=== PATIENT | female | born 1960 | race Caucasian/White ===

== ENCOUNTER 2016-12-05 11:00 | Day surgery (SDC) | payer OTHER ==
--- NOTE | 2016-12-01 03:52 | HP ---
PREOPERATIVE HISTORY AND PHYSICAL: DATE OF OFFICE VISIT/ENCOUNTER: DATE OF SURGERY/ADMISSION: 12/05/16 ATTENDING SURGEON: Eunice Gerber MD. PROCEDURE: Right wrist mass excision, carpal tunnel release. HISTORY OF PRESENT ILLNESS: This is a 56-year-old female who has 2 complaints involving her right wrist. She has been experiencing numbness and tingling in the median nerve distribution for several months now and recently had a nerve conduction study which showed moderate carpal tunnel syndrome on the right. She also has had recurrence of a ganglion cyst on the volar aspect of her right wrist. Initially that was removed in November 2014. She reports that this cyst returned approximately 2 months ago and it is quite bothersome for her. She is interested in pursuing surgical intervention for both of these problems and has consented to proceed with a right wrist mass excision and a carpal tunnel release. PAST MEDICAL HISTORY: 1. Questionable asthma. 2. Anxiety/depression. 3. Chronic back pain. 4. Arthritis. PAST SURGICAL HISTORY: 1. Left knee surgery x2. 2. Right ankle surgery. 3. Right wrist ganglion cystic excision. CURRENT MEDICATIONS: 1. Alprazolam 0.5 mg daily. 2. Diclofenac sodium 50 mg twice a day. 3. Melatonin 15 mg every other night. 4. Oxycodone 10 mg 1 tab q.i.d. 5. Sertraline HCl 150 mg daily. 6. Ventolin inhaler use p.r.n. 7. Vitamin D3 at 2000 units daily. 8. Zolpidem tartrate 10 mg daily. ALLERGIES: 1. ERYTHROMYCIN, causes hives. 2. SULFA, antibiotics causes hives. 3. AUGMENTIN, causes nausea. 4. ZITHROMAX, reaction unknown. 5. LEVAQUIN, causes hives. FAMILY MEDICAL HISTORY: Diabetes and cancer. SOCIAL HISTORY: The patient is disabled secondary to back and knee pain. She denies tobacco use, recreational drug use and alcohol use. REVIEW OF SYSTEMS: General: Positive for night sweats related to menopause. Negative for fevers. No known anesthesia problems in the past. HEENT: Negative for headache, lightheadedness or syncopal episodes. Integumentary: Negative for abrasions, lesions, or open wounds. Cardiothoracic: Negative for hypertension, chest pain, palpitations or edema. Pulmonary: Negative for shortness of breath with exertion, chronic cough, COPD. GI: Negative for nausea , vomiting, diarrhea, constipation, or GERD. : Negative for nocturia, urinary frequency, urgency, history of UTIs or kidney problems. Musculoskeletal : Positive for current complaint and positive for chronic back and knee pain. Neurological: Negative for history of seizure or stroke. Positive for anxiety/ depression. Endocrine: Negative for diabetes or thyroid issues. Hematologic: Negative for easy bruising, anemia, excessive bleeding or history of DVT. Infectious Disease: Positive for history of MRSA in 2016. Negative for hepatitis C or HIV. PHYSICAL EXAM: GENERAL: Well-developed, well-nourished 56-year-old female in no acute distress. VITAL SIGNS: Height 5 feet 2 inches, weight 247 pounds, pulse rate 80, blood pressure 138/82. HEENT: Normocephalic, atraumatic. Pupils are equal, round and reactive to light and accommodation. Extraocular movements are intact. NECK: Supple, no palpable lymph nodes. Throat is clear. PULMONARY: Lungs are clear to auscultation bilaterally. No wheezes, rales or rhonchi. CARDIOVASCULAR: Regular rate and rhythm. S1, S2. No murmurs, rubs or gallops. No edema. ABDOMEN: Positive bowel sounds, soft, nontender. NEUROLOGIC: Alert and oriented x3. Cranial II through XII are intact. MUSCULOSKELETAL: On exam of the right upper extremity on the volar aspect of her right wrist underlying the healed surgical incision, there is an approximately 1 cm diameter cystic mass that is mildly tender to palpation. She has full range of motion of her wrist, no complaints of pain at the extremes of both extension and flexion secondary to the mass. She also has a positive median nerve compression test and a positive Phalen test. There is no visible thenar wasting. There is mild weakness with some abduction. She has good range of motion of her fingers and skin is intact. Sensation is intact to light touch throughout the hand. IMAGING STUDIES: EMG nerve conduction study shows evidence of moderate carpal tunnel syndrome on the right. IMPRESSION: Right wrist recurrent ganglion cyst, carpal tunnel syndrome. PLAN: Patient is scheduled to undergo a right wrist excision mass, carpal tunnel release with Dr. Gerber on 12/05/16. She will return to the office 10 to 14 days postop for followup and suture removal. She has a prescription at home for oxycodone HCl 10 mg that is prescribed by Dr. Gomez in [place] that she uses for other pain in her body. She will plan on using that for postoperative pain management. CLAUDIA ROMO [id number]/[facility] #: [id number] MARINA
[~2016-12-05 11:00] MED LIST: Acetaminophen TAB* 325 MG PO PRN; Buffered Lidocaine 0.9% SYRIN* 5 ML/SYR SYRINGE INTRADERM ONE; DiMENhydriNATE IV* 50 MG/ML VIAL IV PUSH PRN; Famotidine IV* 10 MG/ML 2 ML (20 mg) IV ONE; oxyCODONE TAB* 5 MG TAB PO PRN
[2016-12-05] MEDS ORDERED: Buffered Lidocaine 0.9% SYRIN* 5 ML/SYR SYRINGE ONE (11:28)
[2016-12-05] MEDS ORDERED: Famotidine IV* 10 MG/ML 2 ML (20 mg) ONE (11:28)
[2016-12-05] MEDS ORDERED: fentaNYL* 50 MCG/ML 2 ML VIAL (100 MCG VIAL) ONE (12:05)
[2016-12-05] MEDS ORDERED: Midazolam* 1 MG/ML 5 ML VIAL (5 MG) ONE (12:05)
[2016-12-05] MEDS ORDERED: Propofol* 10 MG/ML 20 ML BTL IV PUSH ONE (12:06)
[2016-12-05] MEDS ORDERED: Ketorolac INJ* 30 MG/ML 1 ML VIAL ONE (12:06)
[2016-12-05] MEDS ORDERED: Lidocaine 2% PF * 5 ML VIAL ONE (12:06)
[2016-12-05] MEDS ORDERED: Ondansetron INJ* 2 MG/ML VIAL ONE (12:06)
[2016-12-05] MEDS ORDERED: Lidocaine 1% INJ* 10 MG/ML 30 ML SDV ONE (13:27)
[2016-12-05 14:41] VITALS: BP 122/46
--- NOTE | 2016-12-06 13:31 | OP ---
DATE OF OPERATION: 12/05/16 - [facility] DATE OF : 62 SURGEON: Eunice Gerber MD TENNIS CAMP INSTRUCTOR: CLAUDIA Caballero ANESTHESIOLOGIST: Regina uKlkarni MD ANESTHESIA: Local MAC. PRE-OP DIAGNOSES: Carpal tunnel syndrome and recurrent ganglion cyst, both on the right. POST-OP DIAGNOSES: Carpal tunnel syndrome and recurrent ganglion cyst, both on the right. OPERATIVE PROCEDURE: Right carpal tunnel release and cyst removal. ESTIMATED BLOOD LOSS: Zero. TOURNIQUET: About 20 minutes. INDICATION FOR PROCEDURE: Mikki Levine is a 56-year-old woman with numbness and tingling in the median nerve distribution of the right hand and also a recurrent ganglion cyst on the right wrist. She presents for removal of the ganglion and for carpal tunnel release. DESCRIPTION OF PROCEDURE: The patient was brought to the operating room, was given a sedation anesthetic and a local infiltration total of 10 cc of 1% plain lidocaine in the palm for right hand and in the area of her right wrist. The skin of the right hand and forearm was prepped and draped in usual sterile fashion. The hand and forearm were exsanguinated and the tourniquet elevated to 250 mmHg. The previous scar from the ganglion cyst excision on the volar aspect of the wrist was incised and was dissected bluntly to the subcutaneous tissue. There was a mass emanating from the flexor carpi radialis tendon that appeared to be scar tissue or a scar down ganglion cyst, it was removed and sent for pathology. The wound was irrigated and the skin edges reapproximated with 4-0 nylon suture. Next, a longitudinal incision was made in the palm in line with the ring finger. We dissected bluntly sharply through the subcutaneous tissue down to the transverse carpal ligament. The ligament was was divided sharply with the knife and then more proximally with the scissors. The nerve was dissected free from the surrounding tissue and there is an area of moderate compression in the mid portion of the ligament. The wound was irrigated and skin edges reapproximated with 4-0 nylon suture. The wound was dressed with Xeroform, 4x4, Webril and Omar wrap. The patient tolerated the procedure well and was brought to the recovery room in good condition. [id number]/[facility] #: [id number] [facility]
== END 2016-12-05 15:00 | disposition home or self-care (01) ==
LOC: OREAST 11:00
PROVIDERS: ATTEND Orthopaedic Surgery
DX: G56.01 Carpal tunnel syndrome, right upper limb (principal); M67.431 Ganglion, right wrist; I10 Essential (primary) hypertension; J45.909 Unspecified asthma, uncomplicated
CPT/HCPCS: 88304; J1885; J2001; J2250; J2405; J2704; J3010

== ENCOUNTER 2017-01-27 07:21 | Day surgery (SDC) | payer OTHER ==
--- NOTE | 2017-01-19 15:53 | HP ---
PREOPERATIVE HISTORY AND PHYSICAL EXAM: DATE OF SURGERY/ADMISSION: 01/27/17 DATE OF OFFICE VISIT/ENCOUNTER: 01/19/17 ATTENDING SURGEON: Eunice Gerber MD * (DICTATED BY CLAUDIA ROMO) PROCEDURE: Left wrist carpal tunnel release. CHIEF COMPLAINT: Numbness and tingling, left hand. HISTORY OF PRESENT ILLNESS: This is a 56-year-old female who has had symptoms of numbness, tingling, and some pain in her left hand for several months now. She gets symptoms during the day and occasionally at night as well. She has tried wrist bracing; however, that did not help to alleviate her symptoms. She recently underwent a right carpal tunnel release with Dr. Gerber and has done very well with that. She is now interested in pursuing carpal tunnel release of the left. PAST MEDICAL HISTORY: 1. Questionable asthma. 2. Anxiety/depression. 3. Chronic back pain. 4. Arthritis. PAST SURGICAL HISTORY: 1. Right carpal tunnel release. 2. Left knee surgery x2. 3. Right ankle surgery. 4. Right wrist ganglion cyst excision. CURRENT MEDICATIONS: 1. Alprazolam 0.5 daily. 2. Diclofenac sodium 50 mg twice a day. 3. Melatonin 15 mg every other night. 4. Oxycodone HCl 10 mg 1 tab 4 times a day p.r.n. pain. 5. Sertraline HCl 150 mg daily. 6. Ventolin inhaler p.r.n. 7. Vitamin D3 at 2000 units daily. 8. Zolpidem tartrate 10 mg daily. ALLERGIES: 1. ERYTHROMYCIN causes hives. 2. SULFA ANTIBIOTICS causes hives. 3. AUGMENTIN causes nausea. 4. ZITHROMAX, reaction unknown. 5. LEVAQUIN causes hives. FAMILY MEDICAL HISTORY: Diabetes and cancer. SOCIAL HISTORY: The patient is disabled secondary to back and knee pain. She denies tobacco use, recreational drug use, and alcohol use. REVIEW OF SYSTEMS: General: Positive for night sweats related to menopause. Negative for fevers or chills. No known anesthesia problems in the past. HEENT : Negative for headache, lightheadedness, or syncopal episodes. Integumentary: Negative for abrasions, lesions, or open wounds. Cardiothoracic: Negative for hypertension, chest pain, palpitations, or edema. Pulmonary: Negative for shortness of breath with exertion, chronic cough, COPD. GI: Negative for nausea, vomiting, diarrhea, constipation, or GERD. : Negative for nocturia, urinary frequency, urgency, history of UTIs, or kidney problems. Musculoskeletal: Positive for current complaint and positive for chronic back and knee pain. Neurological: Negative for history of seizure or stroke. Positive for anxiety/depression. Endocrine: Negative for diabetes or thyroid issues. Hematologic: Negative for easy bruising, anemia, excessive bleeding, or history of DVT. Infectious Disease: Positive for history of MRSA in 2016. Negative for hepatitis C or HIV. PHYSICAL EXAMINATION GENERAL: Well-developed, well-nourished 56-year-old female in no acute distress. VITAL SIGNS: Height 5 feet 2 inches, weight 242 pounds. Blood pressure 128/80 , pulse rate 80. HEENT: Normocephalic, atraumatic. Pupils are equal, round, and reactive to light and accommodation. Extraocular movements are intact. NECK: Supple. No palpable lymph nodes. Throat is clear. PULMONARY: Lungs are clear to auscultation bilaterally. No wheezes, rales, or rhonchi. CARDIOVASCULAR: Regular rate and rhythm. S1, S2. No murmurs, rubs or gallops. No edema. ABDOMEN: Positive bowel sounds, soft, nontender. NEUROLOGIC: Alert and oriented x3. Cranial nerves II through XII are intact. MUSCULOSKELETAL: On exam of the left upper extremity, she has no visible thenar wasting or swelling. She has a positive median nerve compression test and a positive Phalen test at the left wrist. There is mild weakness with thumb abduction. Good range of motion of her fingers and wrist. Sensation is intact to light touch throughout the hand. IMPRESSION: Left wrist carpal tunnel syndrome. PLAN: The patient is scheduled to undergo a left wrist carpal tunnel release with Dr. Gerber on 01/27/17. She will return to the office 10 to 14 days postop for followup and suture removal. She will use pain medications oxycodone HCl 10 mg as prescribed by another provider for postoperative pain management. CLAUDIA ROMO [id number]/[facility] #: [id number] MARINA
[~2017-01-27 07:21] MED LIST changes: -Famotidine IV* 10 MG/ML 2 ML (20 mg) IV ONE; +NS 0.9% 1000 ML* 1,000 ML IV SCH; +Ondansetron INJ* 2 MG/ML VIAL IV PRN; -oxyCODONE TAB* 5 MG TAB PO PRN; +oxyCODONE/Acetamin 5/325 MG* TAB PO PRN
[2017-01-27] MEDS ORDERED: KETAMINE HCL* 50 MG/ML 10 ML VIAL ONE (08:03)
[2017-01-27] MEDS ORDERED: Midazolam* 1 MG/ML 2 ML VIAL (2 MG) ONE (08:03)
[2017-01-27] MEDS ORDERED: fentaNYL* 50 MCG/ML 2 ML VIAL (100 MCG VIAL) ONE (08:03)
[2017-01-27] MEDS ORDERED: Lidocaine 1% INJ* 10 MG/ML 30 ML SDV ONE (08:20)
[2017-01-27] MEDS ORDERED: Propofol* 10 MG/ML 20 ML BTL IV PUSH ONE (08:30)
[2017-01-27] MEDS ORDERED: Lidocaine 2% PF * 5 ML VIAL ONE (08:30)
[2017-01-27 09:14] VITALS: BP 120/88
--- NOTE | 2017-01-27 10:28 | OP ---
DATE OF OPERATION: 01/27/17 - [facility] DATE OF : 62 SURGEON: Eunice Gerber MD ELECTRO TECH: CLAUDIA Caballero. ANESTHESIOLOGIST: Dr. Becerril ANESTHESIA: Local MAC. PRE-OP DIAGNOSIS: Left carpal tunnel syndrome. POST-OP DIAGNOSIS: Left carpal tunnel syndrome. OPERATIVE PROCEDURE: Left carpal tunnel release. ESTIMATED BLOOD LOSS: Zero. TOURNIQUET TIME: 5 minutes. INDICATIONS FOR PROCEDURE: Lacie Briseno is a 56-year-old female with numbness and tingling in the median nerve distribution of her left hand. She presents for left carpal tunnel release. DESCRIPTION OF PROCEDURE: The patient was brought to the operating room, was given a sedation anesthetic, and a local infiltration of 10 cc of 1% plain lidocaine on the palm of her left hand. The skin of her left hand and forearm was prepped and draped in the usual sterile fashion. The hand and forearm were exsanguinated and the tourniquet elevated to 250 mmHg. A longitudinal incision was made in the palm in line with the ring finger. We dissected through the subcutaneous tissue sharply with the knife down to the transverse carpal ligament. The ligament was incised sharply with a knife and then more proximally with the scissors. The nerve was dissected free from the surrounding tissue and there was an area of moderate compression at the mid portion of the ligament. The wound was irrigated and the skin edges reapproximated with 4-0 nylon suture. The wound was dressed with Xeroform, 4x4 , Webril, and an Omar wrap. The patient tolerated the procedure well and was brought to the recovery room in good condition. [id number]/[facility] #: [id number] MTDD
== END 2017-01-27 09:25 | disposition home or self-care (01) ==
LOC: OR 07:21
PROVIDERS: ATTEND Orthopaedic Surgery
DX: G56.02 Carpal tunnel syndrome, left upper limb (principal); F41.8 Other specified anxiety disorders; M19.90 Unspecified osteoarthritis, unspecified site; J45.909 Unspecified asthma, uncomplicated
CPT/HCPCS: J2001; J2250; J2704; J3010

== ENCOUNTER 2017-06-07 01:20 | Emergency (ER) | payer OTHER ==
[2017-06-07] MEDS ORDERED: Ondansetron INJ* 2 MG/ML VIAL IV ONE (01:55)
[2017-06-07] MEDS ORDERED: NS 0.9% 1000 ML* 1,000 ML IV SCH (02:00)
[2017-06-07 02:40] LABS: ABS Basophils 0.1 10^3/ul (0-0.2); ABS Eosinophils 0.3 10^3/ul (0-0.6); ABS Lymphocytes 1.4 10^3/ul (1.0-4.8); ABS Monocytes 0.4 10^3/ul (0-0.8); ABS Neutrophils 10.3 10^3/ul (1.5-7.7); ABS Nucleated RBC 0 10^3/ul; Eosinophil % 2.4 % (0-6); Hematocrit 46 % (35-47); Hemoglobin 15.5 g/dl (12.0-16.0); Mean Corpuscular HGB Conc 34 g/dl (31-36); Mean Corpuscular Hemoglobin 30 pg (27-31); Mean Corpuscular Volume 88 fL (80-97); Mean Platelet Volume 8 um3 (7.4-10.4); Nucleated Red Blood Cells % 0; Platelet Count 262 10^3/ul (150-450); Red Cell Distribution Width 15 % (10.5-15); White Blood Count 12.4 10^3/ul (3.5-10.8)
[2017-06-07 02:52] LABS: EGFR Non-African American 47.1 (>60)
[2017-06-07 04:19] VITALS: BP 116/58
--- NOTE | 2017-06-07 08:01 | RAD ---
Indication: Overdose. 2 views of the chest are reviewed. No mediastinal shift is noted. Heart is of normal size and configuration. Lung walker appear clear. IMPRESSION: NO ACTIVE CARDIOPULMONARY DISEASE IS NOTED.
--- NOTE | 2017-06-12 00:14 | ED ---
Jose Cross Natalie, scribed for Mike Elise MD on 06/07/17 at 0202 . Abdominal Pain/Female - HPI Summary HPI Summary: The pt is a 56 y/o F presenting to the ED c/o sharp and cramping RUQ abd pain starting three hours ago. The pain radiates to her back. The pain is rated 10/ 10. Pt additionally c/o diarrhea, vomiting, and headache. Pt denies fever and hematuria. She has not had abd surgery before, no cholecystectomy. She takes Percocet, Zoloft, and Diclofenac. - History of Current Complaint Chief Complaint: EDGeneral Stated Complaint: FLU LIKE SYMPTOMS Time Seen by Provider: 06/07/17 01:45 Hx Obtained From: Patient Hx Last Menstrual Period: 02/22/14 Onset/Duration: Lasting Hours - started three hours ago, Still Present Timing: Constant Severity Initially: Severe Severity Currently: Severe Pain Intensity: 10 Location: Discrete At: RUQ Radiates: Yes Radiates to: Back Character: Sharp, Cramping Aggravating Factor(s): Movement Alleviating Factor(s): Nothing Associated Signs and Symptoms: Positive: Back Pain, Vomiting, Diarrhea, Other: - headache. Negative: Fever Allergies/Adverse Reactions: Allergies Allergy/AdvReac Type Severity Reaction Status Date / Time Adhesive Tape Allergy Rash Verified 06/07/17 01:28 Doxycycline Allergy GI Upset Verified 06/07/17 01:28 Erythromycin Allergy Rash Verified 06/07/17 01:28 Gabapentin [From Neurontin] Allergy suicidal Verified 06/07/17 01:28 thoughts Levofloxacin [From Levaquin] Allergy GI Upset Verified 06/07/17 01:28 Sulfa Drugs Allergy Rash Verified 06/07/17 01:28 PMH/Surg Hx/FS Hx/Imm Hx Previously Healthy: No Endocrine/Hematology History: Denies: Hx Anticoagulant Therapy, Hx Diabetes, Hx Thyroid Disease Cardiovascular History: Denies: Hx Hypertension, Hx Pacemaker/ICD, Other Cardiovascular Problems/ Disorders Respiratory History: Reports: Hx Asthma - cold turns to asthma Denies: Hx Chronic Obstructive Pulmonary Disease (COPD), Other Respiratory Problems/Disorders GI History: Denies: Hx Ulcer, Other GI Disorders History: Denies: Hx Renal Disease Musculoskeletal History: Reports: Hx Arthritis - all over, Other Musculoskeletal History - ddd Sensory History: Denies: Hx Contacts or Glasses, Hx Hearing Aid Opthamlomology History: Denies: Hx Contacts or Glasses Neurological History: Denies: Other Neuro Impairments/Disorders Psychiatric History: Reports: Hx Anxiety - on meds, Hx Depression - on meds Denies: Hx Panic Disorder - Surgical History Surgery Procedure, Year, and Place: Right Ankle Surgery,. Left knee surg x2- LATERAL RELEASE. ABSCESS REMOVED ON RIGHT WRIST x2 Hx Anesthesia Reactions: Yes - severe diarrhea whit first carpal tunnel - Immunization History Date of Tetanus Vaccine: utd Date of Influenza Vaccine: 2016 Infectious Disease History: No Infectious Disease History: Denies: Hx Hepatitis, Hx Human Immunodeficiency Virus (HIV), History Other Infectious Disease, Traveled Outside the [place] in Last 30 Days - Family History Known Family History: Negative: Cardiac Disease, Hypertension - Social History Alcohol Use: None Substance Use Type: Reports: None Smoking Status (MU): Never Smoked Tobacco Have You Smoked in the Last Year: No Review of Systems Negative: Fever Positive: Abdominal Pain, Vomiting, Diarrhea Negative: hematuria Positive: Headache All Other Systems Reviewed And Are Negative: Yes Physical Exam - Summary Physical Exam Summary: Appearance: Morbidly obese Skin: Warm, Dry, No rash Eyes: Normal, PERRL, EOMI, sclera anicteric ENT: Normal, Poor incisor teeth in front Neck: Supple, nontender Respiratory: Clear to auscultation Cardiovascular: S1, S2, no murmur, no rub, no gallop, No rigidity Abdomen: Soft, no organomegaly, Primarily RUQ pain Bowel sounds: Present Musculoskeletal: Normal, Strength/ROM Intact, no edema, pulses symmetrical Neurological: Normal, A&Ox3, cranial nerves II-XII WNL, follows commands, gait not tested, sensation intact to pin and light touch Psychiatric: affect normal, behavior appropriate, dressed appropriately, judgment intact Triage Information Reviewed: Yes Vital Signs On Initial Exam: Initial Vitals Temp Pulse Resp BP Pulse Ox 99.7 F 65 18 132/64 95 06/07/17 01:26 06/07/17 01:26 06/07/17 01:26 06/07/17 01:06/07/17 01:26 Vital Signs Reviewed: Yes - Chantal Coma Scale Coma Scale Total: 15 Diagnostics - Vital Signs Vital Signs Temp Pulse Resp BP Pulse Ox 06/07/17 01: 99.7 F 65 18 132/64 95 - Laboratory Lab Results: Lab Results 06/07/17 06/07/17 06/07/17 Range/Units 02:05 02:25 02:25 WBC 12.4 H (3.5-10.8) 10^3/ul RBC 5.20 (4.0-5.4) 10^6/ul Hgb 15.5 (12.0-16.0) g/dl Hct 46 (35-47) % MCV 88 (80-97) fL MCH 30 (27-31) pg MCHC 34 (31-36) g/dl RDW 15 (10.5-15) % Plt Count 262 (150-450) 10^3/ul MPV 8 (7.4-10.4) um3 Neut % (Auto) 82.7 (38-83) % Lymph % (Auto) 11.0 L (25-47) % [place] % (Auto) 3.4 (1-9) % Eos % (Auto) 2.4 (0-6) % Baso % (Auto) 0.5 (0-2) % Absolute Neuts (auto) 10.3 H (1.5-7.7) 10^3/ul Absolute Lymphs (auto) 1.4 (1.0-4.8) 10^3/ul Absolute Monos (auto) 0.4 (0-0.8) 10^3/ul Absolute Eos (auto) 0.3 (0-0.6) 10^3/ul Absolute Basos (auto) 0.1 (0-0.2) 10^3/ul Absolute Nucleated RBC 0 10^3/ul Nucleated RBC % 0 Sodium 136 (133-145) mmol/L Potassium TNP Chloride 99 L (101-111) mmol/L Carbon Dioxide 30 (22-32) mmol/L Anion Gap 7 (2-11) mmol/L BUN 12 (6-24) mg/dL Creatinine 1.19 H (0.51-0.95) mg/dL Est GFR ( Amer) 60.6 (>60) Est GFR (Non-Af Amer) 47.1 (>60) BUN/Creatinine Ratio 10.1 (8-20) Glucose 117 H (70-100) mg/dL Calcium 10.3 (8.6-10.3) mg/dL Total Bilirubin 0.70 (0.2-1.0) mg/dL AST TNP ALT 30 (7-52) U/L Alkaline Phosphatase 124 H (34-104) U/L Total Protein 8.5 (6.4-8.9) g/dL Albumin 4.4 (3.2-5.2) g/dL Globulin 4.1 H (2-4) g/dL Albumin/Globulin Ratio 1.1 (1-3) Lipase 22 (11.0-82.0) U/L Influenza A (Rapid) Negative (Negative) Influenza B (Rapid) Negative (Negative) Result Diagrams: 06/07/17 02:25 06/07/17 02:25 Lab Statement: Any lab studies that have been ordered have been reviewed, and results considered in the medical decision making process. Abdominal Pain Fem Course/Dx - Course Course Of Treatment: The patient presented to [facility] with RUQ abdominal pain that started three hours [employer]OURCES PSYCHOLOGIST. In the ED course the patient was given normal saline and Ondansetron. Bloodwork shows slightly elevated WBC, negative for influenza A/B. The patient is diagnosed with gastroenteritis. The patient will be discharged home. The patient is instructed to follow up with primary care physician. The patient is agreeable with this plan. - Diagnoses Provider Diagnoses: Gastroenteritis Discharge - Discharge Plan Condition: Fair Disposition: HOME Prescriptions: Ondansetron [Zofran 4 MG Odt] 4 mg PO Q6HR PRN 3 Days #12 tab PRN Reason: Nausea Patient Education Materials: Gastroenteritis (ED) Referrals: Tricia Wise MD [Primary Care Provider] - Additional Instructions: clear liquids until diarrhea resolves The documentation as recorded by the Jose modi Natalie accurately reflects the service I personally performed and the decisions made by , Mike Elise MD.
== END 2017-06-07 04:18 | disposition home or self-care (01) ==
LOC: ED 01:20
DX: K52.9 Noninfective gastroenteritis and colitis, unspecified (principal); Z88.3 Allergy status to other anti-infective agents; Z88.2 Allergy status to sulfonamides; Z88.8 Allergy status to other drugs, medicaments and biological substances
CPT/HCPCS: 36415; 71046; 80053; 83690; 85025; 87502; 96361; 96374; 99283; J2405

== ENCOUNTER 2019-03-01 08:34 | Inpatient (IN) | payer OTHER ==
[~2019-03-01 08:34] MED LIST changes: -Acetaminophen TAB* 325 MG PO PRN; -Buffered Lidocaine 0.9% SYRIN* 5 ML/SYR SYRINGE INTRADERM ONE; +Buffered Lidocaine 1% SYRIN* 1 ML/SYRINGE INTRADERM ONE; -DiMENhydriNATE IV* 50 MG/ML VIAL IV PUSH PRN; +Famotidine IV* 10 MG/ML 2 ML (20 mg) IV ONE; +Lactated Ringers 1000 ML Bag* 1,000 ML IV SCH; -NS 0.9% 1000 ML* 1,000 ML IV SCH; -Ondansetron INJ* 2 MG/ML VIAL IV PRN; +Tranexamic Acid 1,000 MG in NS 0.9% 50 ML* (outpatient use) IV SCH; -oxyCODONE/Acetamin 5/325 MG* TAB PO PRN
--- OUTSIDE RECORDS SUMMARY | 2019-03-01 08:39 | XMS REPORT | Continuity of Care Document ---
:1960 External Reference #:[id number] Author Name Garry Yepez M.D. (transmitted by agent of provider Jena Santiago) Address [address] [place] [id number] Care Team Providers Name Role Phone Tricia Wise MD - Internal Care Team Information Patient Sitter [phone] Medicine [facility] Care Team Information Patient Sitter - Physical Therapy Problems Active Problems Provider Date Carpal tunnel syndrome of right wrist Bela Batista M.D. Onset: 12/27/2015 Note: right Social History Type Date Description Comments Sex Unknown ETOH Use Denies alcohol use Tobacco Use Start: Unknown Patient has never smoked Recreational Drug Use Denies Drug Use Smoking Status Reviewed: 02/16/19 Patient has never smoked Exercise Type/Frequency Does not exercise Allergies, Adverse Reactions, Alerts Active Allergies Reaction Severity Comments Date Sulfa Antibiotics Rash 11/30/2014 Erythromycin rash 11/22/2015 Levaquin Itchy and N/V 11/22/2015 Doxycycline N/V 12/27/2015 Neurontin suicidal Severe 11/01/2018 Medications Active Medications SIG Qnty Indications Ordering Provider Date Melatonin 1 tab by mouth Unknown 10mg Capsules every night Sertraline HCL 1 by mouth Unknown 150mg every day Tablets Zolpidem Tartrate 1 po qhs Lety, 10mg CLAUDIA Rosa Tablets Diclofenac Sodium 1 po bid Andrez Gomez, 75mg Tablets Oxycodone HCL 1 po qid Len Lloyd, 10mg TITLE I MATH TUTOR Tablets Ventolin RENAA Arti Felder, 108(90Base) PUG MILL OPERATOR HELPER-BC mcg/Act Aerosol Vitamin D3 1 by mouth Unknown 2000Unit every day Capsules Risperidone 1/2 in the am, Jake Yousif, 1mg Tablets 1 at bed N.P. Cetirizine HCL 1 by mouth Unknown 10mg every day Tablets Atorvastatin Calcium 1 by mouth Unknown 10mg every day Tablets Azo Yeast Plus 1 tab by mouth Unknown every day Benadryl Allergy 1 tab by mouth 24caps Unknown 25mg three times a Capsules day Multi Vitamin 1 by mouth Unknown Tablets every day Immunizations Description No Information Available Vital Signs Date Vital Result Comment 02/16/2019 10:44am Height 62 inches 5'2" Weight 246.75 lb Heart Rate 90 /min BP Systolic 130 mmHg BP Diastolic 74 mmHg Respiratory Rate 18 /min Body Temperature 96.9 F Pain Level 6 BMI (Body Mass Index) 45.1 kg/m2 01/31/2019 9:46am Height 62 inches 5'2" Weight 250.00 lb Heart Rate 94 /min BP Systolic 136 mmHg BP Diastolic 80 mmHg Respiratory Rate 16 /min Pain Level 4 BMI (Body Mass Index) 45.7 kg/m2 Results Test Date Facility Test Result H/L Range Note Inr/Protime [facility] Inr 1.03 Normal 0.82-1.09 1 , [address] [place] [address] [phone] [facility] Partial 35.6 seconds Normal 26.0-38.0 finding [address] [place] [address] PTT [phone] Type & Screen [facility] Patient O Positive [address] [place] [address] [phone] Antibody Screen NEGATIVE CBC Auto 02/16/2019 [facility] White Blood 9.2 10^3/uL Normal 3.5-10.[address] [place] [address] [phone] Red Blood Count 4.56 10^6/uL Normal 3.70-4.87 Hemoglobin 13.8 g/dL Normal 12.0-16.0 Hematocrit 40 % Normal 35-47 Mean Corpuscular Volume 89 fL Normal 80-97 Mean Corpuscular Hemoglobin 30 pg Normal 27-31 Mean Corpuscular HGB Conc 34 g/dL Normal 31-36 Red Cell Distribution Width 14 % Normal 10-15 Platelet Count 252 10^3/uL Normal 150-450 Mean Platelet Volume 7.7 fL Normal 7.4-10.4 Abs Neutrophils 5.7 10^3/uL Normal 1.5-7.7 Abs Lymphocytes 2.6 10^3/uL Normal 1.0-4.8 Abs Monocytes 0.3 10^3/uL Normal 0-0.8 Abs Eosinophils 0.5 10^3/uL Normal 0-0.6 Abs Basophils 0.1 10^3/uL Normal 0-0.2 Abs Nucleated RBC 0.0 10^3/uL Granulocyte % 61.8 % Lymphocyte % 28.2 % Monocyte % 3.6 % Eosinophil % 5.8 % Basophil % 0.6 % Nucleated Red Blood Cells % 0.0 Comp Metabolic 02/16/2019 [facility] Sodium 140 mmol/L Normal 135-[address] [place] [address] [phone] Potassium 4.0 mmol/L Normal 3.5-5.0 Chloride 103 mmol/L Normal 101-111 Co2 Carbon Dioxide 28 mmol/L Normal 22-32 Anion Gap 9 mmol/L Normal 2-11 Glucose 130 mg/dL High 70-100 Blood Urea Nitrogen 11 mg/dL Normal 6-24 Creatinine 1.10 mg/dL High 0.51-0.95 BUN/Creatinine Ratio 10.0 Normal 8-20 Calcium 9.0 mg/dL Normal 8.6-10.3 Total Protein 7.0 g/dL Normal 6.4-8.9 Albumin 3.8 g/dL Normal 3.2-5.2 Globulin 3.2 g/dL Normal 2-4 Albumin/Globulin Ratio 1.2 Normal 1-3 Total Bilirubin 0.60 mg/dL Normal 0.2-1.0 Alkaline Phosphatase 140 U/L High 34-104 Alt 30 U/L Normal 7-52 Ast 29 U/L Normal 13-39 Egfr Non- 51.2 >60 Egfr 61.9 >60 3 Lipid Profile 02/16/2019 [facility] Triglycerides 244 mg/dL 4 (Trig/Chol/HDL) [address] [place] [address] [phone] Cholesterol 192 mg/dL 5 HDL Cholesterol 31.5 mg/dL 6 LDL Cholesterol 112 mg/dL 7 Iron & Iron Binding 02/16/2019 [facility] Iron 72 g/dL Normal 50-[address] [place] [address] [phone] Unsaturated Iron Binding < 269 g/dL Total Iron Binding Capacity 284 g/dL Normal 250-450 Transferrin 203 mg/dL Normal 203-362 % Iron Saturation 25 % Normal 15-55 Laboratory test finding 02/16/2019 [facility] Cortisol 5.18 g/ dL [address] [place] [address] [phone] Thyroxine 8.95 g/dL Normal 6.09-12.23 TSH (Thyroid Stim Horm) 6.87 mcIU/mL High 0.34-5.60 Ferritin 96.0 ng/mL Normal 11-307 Vitamin B12 595 pg/mL Normal 180-914 9 Vitamin D Total 25(Oh) 50.0 ng/mL Normal 20-50 10 Urinalysis Profile 02/16/2019 [facility] Urine Color Yellow [address] [place] [address] [phone] Urine Appearance Cloudy Urine Specific [place] 1.008 Low 1.010-1.030 Urine pH 5.0 Normal 5-9 Urine Urobilinogen Negative Negative Urine Ketones Negative Negative Urine Protein Negative Negative Urine Leukocytes 1+ Abnormal Negative Urine Blood 1+ Abnormal Negative Urine Nitrite Negative Negative Urine Bilirubin Negative Negative Urine Glucose Negative Negative Urine White Blood Cell Trace(0-5/hpf) Absent Urine Red Blood Cell Trace(0-2/hpf) Absent Urine Bacteria Absent Absent Urine Squamous Epithelial Cell Present Abnormal Absent Urine Culture And 02/16/2019 [facility] Urine Culture SEE RESULT [address] [place] [address] [phone] 1,25 Dihydroxy 02/16/2019 [facility] Calcitriol 15 pg/mL Abnormal 18- 12 Vitamin D [address] [place] [address] [phone] 1 UNILATERAL PRIMARY OSTEOARTHRITIS, LEFT KNEE 2 Standard intensity warfarin therapeutic range: 2.0-3.0 High intensity warfarin therapeutic range: 2.5-3.5 3 Because ethnic data is not always readily available, this report includes an eGFR for both -Americans and non- Americans. The National Kidney Disease Education Program (NKDEP) does not endorse the use of the MDRD equation for patients that are not between the ages of 18 and 70, are , have extremes of body size, muscle mass, or nutritional status, or are non- or non-. According to the National Kidney Foundation, irrespective of diagnosis, the stage of the disease is based on the level of kidney function: Stage Description GFR(mL/min/1.73 m(2)) 1 Kidney damage with normal or decreased GFR 90 2 Kidney damage with mild decrease in GFR 60-89 3 Moderate decrease in GFR 30-59 4 Severe decrease in GFR 15-29 5 Kidney failure <15 (or dialysis) 4 Desirable: <150 Borderline High: 150-199 High: 200-499 Very High: >500 5 Desirable: <200 Borderline High: 200-239 High: >239 6 Low: <40 Desirable: 40-60 High: >60 7 Desirable: <100 Near Optimal: 100-129 Borderline High: 130-159 High: 160-189 Very High: >189 8 AM 8.7-22.4 PM <10 9 Normal Range 180 to 914 Indeterminate Range 145 to 180 Deficient Range <145 10 Total 25-Hydroxyvitamin D2 and D3 (25-OH-VitD) <10 ng/mL (severe deficiency) 10-19 ng/mL (mild to moderate deficiency) 20-50 ng/mL (optimum levels) 51-80 ng/mL (increased risk of hypercalciuria) >80 ng/mL (toxicity possible) 11 SEE RESULT BELOW Name: DUONGLEESADIQ : [address]: Tricia Wise MD Acct: [id number] Unit: [id number] AGE: 58 Location: LAB Re02/16/19 SEX: F Status: REG REF SPEC: [id number] AVINASH: 02/16/19-[address] [facility] [address]: Tricia Wise MD REQ: [id number] RECD: 02/16/192 STATUS: COMP JANET DR: Garry Yepez MD _ SOURCE: URINE SPDESC: ORDERED: Urine Culture Procedure Result Reported Site Urine Culture Final 02/17/19- 1318 ML No Growth (<1,000 CFU/mL) * ML - Main Lab . END OF REPORT DEPARTMENT OF PATHOLOGY, [address] [place] [address] James Goodman M.D. Director THAD # [id number] ADDITIONAL INFORMATION This test was developed and its performance characteristics determined by [facility] in a manner consistent with CLIA requirements. This test has not been cleared or approved by the U.S. Food and Drug Administration. Test Performed by: [facility] [address] [place] [address] Director [employer]: Darius Dejesus M.D. Ph.D.; CLIA# [id number] Procedures Description No Information Available Medical Devices Description No Information Available Encounters Type Date Location Provider Dx Diagnosis Office Visit 01/31/2019 [facility] Garry Yepez M.D. M17.12 Unilateral 9:30a at [place] primary osteoarthritis, left knee Office Visit 11/10/2018 Neurosurgery Kimani Andrew M43.16 Spondylolisthesis 9:30a [facility] [place] , lumbar region M48.062 Spinal stenosis, lumbar region with neurogenic claudication Office Visit 11/01/2018 2:00p Pulmonology And Sleep Denisa Lea R06.83 Snoring [facility] R53.83 Other fatigue G47.00 Insomnia, unspecified Assessments Date Code Description Provider 02/16/2019 M17.12 Unilateral primary osteoarthritis, left knee Garry Yepez M.D. 01/31/2019 M17.12 Unilateral primary osteoarthritis, left knee Garry Yepez M.D. 11/10/2018 M43.16 Spondylolisthesis, lumbar region CLAUDIA Maravilla 11/10/2018 M48.062 Spinal stenosis, lumbar region with neurogenic CLAUDIA Maravilla claudication 11/01/2018 R06.83 Snoring Denisa Lea MD 11/01/2018 R53.83 Other fatigue Denisa Lea MD 11/01/2018 G47.00 Insomnia, unspecified Denisa Lea MD Plan of Treatment Future Appointment(s):03/30/2019 3:30 pm - Garry Yepez M.D. at [facility]03/01/2019 11:00 am - Garry Yepez M.D. at [facility] at [place]/16/2019 - Garry Yepez M.D.M17.12 Unilateral primary osteoarthritis, left kneeFollow up:Follow up: to the OR Functional Status Description No Information Available Mental Status Description No Information Available Referrals Refer to Reason for Referral Status Appt Date [facility] Consult patient on weight Patient Declined Center loss and diet [address] [place] [address] [phone]
--- OUTSIDE RECORDS SUMMARY | 2019-03-01 08:39 | XMS REPORT | Continuity of Care Document ---
:1960 External Reference #:[id number] Author Name Garry Yepez M.D. (transmitted by agent of provider Carine De Los Santos) Address [address] [place] [id number] Care Team Providers Name Role Phone Tricia Wise MD - Internal Care Team Information Toe Puncher Medicine [facility] Care Team Information Toe Puncher [phone] - Physical Therapy Problems Active Problems Provider [...] HCL 1 po qid Len Lloyd, 10mg VELOCITY SHOOTER Tablets Ventolin Arti Gregg, 108(90Base) CLEAT BLANKER-BC mcg/Act Aerosol Vitamin D3 1 by mouth [...] BMI (Body Mass Index) 45.7 kg/m2 Results Description No Information Available Procedures Description No Information Available Medical Devices Description No Information Available Encounters Type Date Location Provider Dx Diagnosis Office Visit 01/31/2019 Orthopedic Services Garry Yepez M.D. M17.12 Unilateral 9:30a [facility] primary osteoarthritis, left knee Office Visit 11/10/2018 Neurosurgery Kimani Andrew, M43.16 Spondylolisthesis 9:30a [facility] [place] , lumbar region M48.062 Spinal stenosis, lumbar region with neurogenic claudication Office Visit 11/01/2018 2:00p Pulmonology And Sleep Denisa Lea, R06.83 Snoring [facility] R53.83 Other fatigue G47.00 Insomnia, unspecified Assessments [...] 3:30 pm - Garry Yepez M.D. at [facility].03/01/2019 11:00 am - Garry Yepez M.D. at [facility].02/16/2019 - Garry Yepez M.D.M17.12 Unilateral primary osteoarthritis, left kneeFollow up:Follow up: to the OR Functional Status Description No Information Available Mental Status Description No Information Available Referrals Refer to Reason for Referral Status Appt Date [facility] Consult patient on weight Patient Declined Center loss and diet [address] [place] [address] [phone]
[2019-03-01] MEDS ORDERED: Famotidine IV* 10 MG/ML 2 ML (20 mg) ONE (09:20)
[2019-03-01] MEDS ORDERED: ceFAZolin 2 GM in NS PREMIX(*) 2 GM/100 ML BAG IVPB ONE (09:20)
[2019-03-01] MEDS ORDERED: Levalbuterol 0.63MG/3ML NEB* UNIT OF USE INH ONE ×2 (09:53)
[2019-03-01] MEDS ORDERED: Midazolam* 1 MG/ML 5 ML VIAL (5 MG) ONE (10:09)
[2019-03-01] MEDS ORDERED: Lidocaine 1% MPF ** 5 ML VIAL ONE (10:38)
[2019-03-01] MEDS ORDERED: ROPIVACAINE 5 MG/ML 30 ML BTL (0.5%) ONE (10:38)
[2019-03-01] MEDS ORDERED: KETAMINE HCL* 50 MG/ML 10 ML VIAL ONE (11:42)
[2019-03-01] MEDS ORDERED: Midazolam* 1 MG/ML 2 ML VIAL (2 MG) ONE (12:38)
[2019-03-01] MEDS ORDERED: fentaNYL* 50 MCG/ML 2 ML VIAL (100 MCG VIAL) ONE ×2 (12:45→12:54)
[2019-03-01] MEDS ORDERED: Lidocaine 2% PF * 5 ML VIAL ONE (13:00)
[2019-03-01] MEDS ORDERED: Phenylephrine 40 MCG/ML SYRINGE ONE (13:00)
[2019-03-01] MEDS ORDERED: Propofol* 10 MG/ML 20 ML BTL ONE (13:00)
[2019-03-01] MEDS ORDERED: Ondansetron INJ* 2 MG/ML VIAL ONE (13:00)
[2019-03-01] MEDS ORDERED: Ketorolac INJ* 30 MG/ML 1 ML VIAL ONE (13:00)
[2019-03-01] MEDS ORDERED: Dexamethasone IV* 4 MG/ML 1 ML (4 MG) ONE (13:00)
[2019-03-01] MEDS ORDERED: Naloxone* 0.4 MG/ML 1 ML VIAL IV PRN (13:15)
[2019-03-01] MEDS ORDERED: DiMENhydriNATE IV* 50 MG/ML VIAL IV PUSH PRN (13:15)
[2019-03-01] MEDS ORDERED: Levalbuterol 0.63MG/3ML NEB* UNIT OF USE INH PRN (13:15)
[2019-03-01] MEDS ORDERED: oxyCODONE/Acetamin 5/325 MG* TAB PO PRN ×3 (13:15→15:37)
[2019-03-01] MEDS ORDERED: Bupivacaine 0.5% W/EPI SDV* 10 ML VIAL INJ ONE (14:31)
[2019-03-01] MEDS ORDERED: HYDROmorphone INJ1* 1 MG/ML SYRINGE ONE ×3 (15:02→16:33)
[2019-03-01] MEDS ORDERED: Cyclobenzaprine TAB* 10 MG PO PRN (15:37)
[2019-03-01] MEDS ORDERED: Polyethylene Glycol 3350* 17 GM PACKET PO PRN (15:37)
[2019-03-01] MEDS ORDERED: traMADol TAB* 50 MG PO PRN (15:37)
[2019-03-01] MEDS ORDERED: Magnesium Hydroxide LIQ* 30 ML UDC PO PRN (15:37)
[2019-03-01] MEDS ORDERED: traZODone TAB* 50 MG TAB PO PRN (15:37)
[2019-03-01] MEDS ORDERED: Morphine INJ* 2 MG/ML 1 ML SYRINGE (TWO MG - NEW SYRINGE VERSION) IV PRN (15:37)
[2019-03-01] MEDS ORDERED: diPHENhydraMINE PO* 25 MG PO PRN (15:37)
[2019-03-01] MEDS ORDERED: Ondansetron INJ* 2 MG/ML VIAL IV PRN (15:37)
[2019-03-01] MEDS ORDERED: Ondansetron ODT TAB* 4 MG PO PRN (15:37)
[2019-03-01] MEDS ORDERED: diPHENhydraMINE IV* 50 MG/ML 1 ml VIAL (BENADRYL) IV PRN (15:37)
[2019-03-01] MEDS ORDERED: Albuterol HFA INHALER* 8 gm MDI INH PRN (15:46)
[2019-03-01] MEDS: HYDROmorphone INJ1* 1 MG/ML SYRINGE IV PRN ×6 (15:57→16:34)
[2019-03-01] MEDS: oxyCODONE TAB* 5 MG TAB PO PRN ×2 (16:13→16:14)
[2019-03-01] MEDS ORDERED: oxyCODONE TAB* 5 MG TAB ONE (16:13)
[2019-03-01] MEDS: Lactated Ringers 1000 ML Bag* 1,000 ML IV SCH (17:46)
[2019-03-01] MEDS: MELATONIN PO SCH (21:38)
[2019-03-01] MEDS: PYRIDOXINE PO SCH (21:38)
[2019-03-01] MEDS: Cholecalciferol TAB* 1000 UNITS PO SCH (22:02)
[2019-03-01] MEDS: Zolpidem TAB* 10 MG PO SCH (22:02)
[2019-03-01] MEDS: Docusate CAP* 100 MG PO SCH (22:02)
[2019-03-01] MEDS: oxyCODONE TAB* 5 MG TAB PO SCH (22:03)
[2019-03-01] MEDS: Acetaminophen TAB* 325 MG PO SCH (22:04)
[2019-03-01] MEDS: Sertraline* 100 MG TAB PO SCH (22:04)
[2019-03-01] MEDS: Cyclobenzaprine TAB* 10 MG PO SCH (22:04)
[2019-03-01] MEDS: risperiDONE TAB* 1 MG PO SCH (22:04)
[2019-03-01] MEDS: Cetirizine* 10 MG TAB PO SCH (22:05)
[2019-03-01] MEDS: Magnesium Hydroxide LIQ* 30 ML UDC PO SCH (22:06)
[2019-03-02] MEDS: oxyCODONE TAB* 5 MG TAB PO SCH ×6 (00:26→20:22)
[2019-03-02] MEDS: Lactated Ringers 1000 ML Bag* 1,000 ML IV SCH (03:33)
--- NOTE | 2019-03-02 03:49 | OP ---
DATE OF OPERATION: 03/01/19 - ROOM #341 DATE OF : 62 SURGICAL CARE: Left knee. SURGEON: Garry Yepez MD AUTOMATIC MOLD SANDER: Tammie Ontiveros and CLAUDIA Mantilla, reproductive healthcare assistant. ANESTHESIOLOGIST: Dr. Regina Kulkarni ANESTHESIA: A spinal was attempted and the patient had an endotracheal tube general anesthetic. A left Adductor canal block was done in the holding area by Dr. Kulkarni as well. PRE-OP DIAGNOSIS: Severe arthritis of the left knee in the medial compartment with patellar compartment and varus malalignment. POST-OP DIAGNOSIS: Severe arthritis of the left knee in the medial compartment with patellar compartment and varus malalignment. OPERATIVE PROCEDURE: Left total knee replacement. COMPONENTS UTILIZED: Otis posterior stabilize Persona knee, all components cemented, size 5 femur, a 32 patella, size D tibia with a small extension and a 10 articular surface. BLOOD LOSS: 250 mL REPLACEMENT: Crystalloid fluids. COMPLICATIONS: There were no complications. DRAINS: There were no drains. CONDITION: Stable to the recovery room. OPERATIVE INDICATION: Same as the preoperative diagnoses. The patient has been no longer responsive to nonoperative care. DESCRIPTION OF PROCEDURE: The patient was brought to the operative room and placed on the operating table in supine position then into a seated position for the spinal anesthetic which was attempted but was not successful and then to the supine position the general anesthetic was administered. The endotracheal tube was inserted. A Roa catheter was inserted. The left proximal thigh was wrapped with a tourniquet. The left leg was given a preliminary chlorhexidine prep in the region of the surgical care and then a final formal ChloraPrep from the tourniquet to the tips of the toes. After prepping, draping, and sealing off, we did our universal protocol time-out confirming Mikki Levine and the plan for left total knee replacement. We all agreed and we proceeded. The surgical care was done with the knee acutely flexed and the hip was acutely flexed. The left foot was on a padded foot piece with the knee acutely flexed as well. The skin incision utilized an old anterior longitudinal skin incision that she had that was just lateral to the patella and then continued on to the medial aspect of the tibial tubercle and just a centimeter beyond that. The skin and subcutaneous tissues were divided and the surgical care was done without tourniquet until we got to the clean up and some running phase of the case. The skin and subcu divided down to the prepatellar bursa. The prepatellar bursa was traversed. The quadriceps tendon visualized. The medial aspect of the patella visualized. The knee was entered medial parapatellar dividing the quad tendon at the junction of the vastus medialis tendon and the rectus femoris tendon, staying as close to vastus medialis tendon as possible. On the tibia, the soft tissues were divided down to the bone from the joint line down to the 2 cm medial to the tibial tubercle. All of the periosteum on the medial tibia going medially was elevated subperiosteally, going around to the deep MCL and into the posteromedial corner of the knee. There was complete eburnation of bone, medial femoral condyle, medial tibial plateau, bone on bone arthritis, large osteophyte medial tibial plateau, medial femoral condyle, intercondylar notch, and the patella. The patella had synovitis going superiorly towards the lateral side. This was excised when we did the peripatellar synovectomy and removed the infrapatellar fat pad. The patella was made so that could be everted. The patellar tendon carefully preserved throughout the case. The remains of the anterior horn of the medial meniscus were excised. The distal anterior femur was exposed subperiosteally for referencing and measuring. The ACL and PCL were uplifted from their femoral origins and in this process the tibia was made so that it could be subluxated forward from under the femur. The PCL was carefully excised. Great care was taken while working posteriorly with careful hemostasis. The lateral meniscus was carefully excised. The proximal tibial cut was made first, our goal here was to have a tibial surface that would be perpendicular to the long axis of the tibia and have a slight posterior slope removing a few millimeters on the medial side and 10 to 12 mm on the lateral side. After this cut was completed, then the femoral intramedullary go was utilized. The femoral canal was entered. The femoral canal was suctioned to discourage embolization and the distal femoral cutting guide was applied on 0 with 6 degrees of valgus. The distal femoral cut was completed and the extension gap was fine with a 10-mm block. The femur was measured for a size 5. The anterior, posterior, and chamfering cuts were completed on the femur. We then finished removal of the posterior horn medial meniscus carefully preserving the MCL, small posterior osteophytes medial and lateral femoral condyles, the ACL and the posterior horn lateral meniscus, and tibial cut which had not been quite completed posteriorly was completed. At this stage, we had nice ligamentous balance with 90 degrees of flexion with a 10 mm block. The femur was completed with the intercondylar cutout. The femoral canal was then cleaned x6 with saline, suctioned empty, the same and then a bone plug was inserted. The tibia was completed for a size D with a 10 articular surface. The knee was then articulated and extended with a size D tibia, 10 articular surface, and a size 5 femur with full knee extension, stable ligaments in extension, and stable ligaments in 90 degrees of flexion. The patella was cut flat, a 32 was chosen, three drill holes were made, and these were undercut. The lateral release was not necessary. The leg was then exsanguinated. The tourniquet elevated to 275. The knee was then cleaned entirely in extension with pulsed saline and then the knee was flexed. All the bony surfaces were cleaned and flexed with pulse saline as well and all surfaces were carefully dried. The cement was mixed and the components were cemented into position, patella, followed by tibia, followed by femur. Each component was impacted. Excess cement was removed, and the knee was articulated and extended during the final hardening. Pericapsular Marcaine with epinephrine was inserted posteromedially, medially, and laterally 30 mL and then careful closure was done with careful checking and achieving careful hemostasis posteriorly. Removal of all excess cement and we irrigated several times during the closure with saline. The quad mechanism reapproximated with interrupted #1 Vicryls in figure-of-8 fashion, the same at the medial retinaculum and we did not think the drains were was necessary. The deep fascia closed with interrupted 0 Vicryl, superficial subcu closed with 3-0 Vicryl and the skin was closed with luis. The knee was extended completely and flexed to 130 degrees multiple times during the closure and the dressing was applied after the luis were inserted with and washing and drying with [id number]-ysxctpt, sterile gauze, sterile Webril, cryotherapy cuff, ABD pads, and a 6-inch Omar bandage loosely applied. The dorsalis pedis pulse was 2 + at the end of the case, and the patient was returned to hospital bed in the recovery room in stable and satisfactory condition having tolerated the procedure very well. [id number]/[facility] #: [id number] MARINA
[2019-03-02] MEDS: ceFAZolin 1 GM ADVAN(*) 1 GM in NS 0.9% 50 ML* 50 ML IVPB SCH ×3 (07:26→20:18)
--- NOTE | 2019-03-02 07:27 | PN ---
Progress Note - Progress Note Date of Service: 03/02/19 Note: POD#1 VSStable . Post op X-ray all satisfactory. Awake, alert, cooperative and breathing easily. Labs are pending. Dressing left knee is clean and dry. Left DP pulse is 2 plus. Moves left ankle up and down. Exercises done left ankle and knee and hip. Imp: Stable Plans: Up with walker and incentive spirometer and drinking.
--- NOTE | 2019-03-02 08:18 | PN ---
Progress Note - Progress Note Date of Service: 03/02/19 Note: Plan: Pt seen by Dr Yepez this morning/\. Pt will be on 3 doses ancef for post op abx DVT prophy plan: for today lovenox 30 mg sq, tomorrow lovenox 40 mg sq then will transition to eliquis 2.5 mg po BID x remainder of 30 days post op Encourage PO fluid intake for low grade tachycardia and soft BP Enocurage IS
[2019-03-02 08:25] LABS: Hematocrit 30 % (35-47); Mean Platelet Volume 7.4 fL (7.4-10.4); Platelet Count 266 10^3/uL (150-450)
[2019-03-02 08:41] LABS: BUN/Creatinine Ratio 10.8 (8-20); Calcium 8.8 mg/dL (8.6-10.3); EGFR African American 85.7 (>60); EGFR Non-African American 70.9 (>60); Potassium 3.8 mmol/L (3.5-5.0)
[2019-03-02] MEDS: Acetaminophen TAB* 325 MG PO SCH ×3 (09:27→21:47)
[2019-03-02] MEDS: Docusate CAP* 100 MG PO SCH ×2 (09:42→20:21)
[2019-03-02] MEDS: Cyclobenzaprine TAB* 10 MG PO SCH ×3 (09:42→20:23)
[2019-03-02] MEDS: Magnesium Hydroxide LIQ* 30 ML UDC PO SCH ×2 (09:42→20:21)
[2019-03-02] MEDS: Atorvastatin* 10 MG TAB PO SCH (09:42)
[2019-03-02] MEDS: Vitamin THERAPEUTIC TAB PO SCH (09:42)
[2019-03-02] MEDS ORDERED: Enoxaparin(*) 30 MG/0.3 ML SYR SUBCUT SCH (12:00)
[2019-03-02] MEDS: Cholecalciferol TAB* 1000 UNITS PO SCH (20:21)
[2019-03-02] MEDS: Cetirizine* 10 MG TAB PO SCH (20:23)
[2019-03-02] MEDS: risperiDONE TAB* 1 MG PO SCH (20:23)
[2019-03-02] MEDS: Sertraline* 100 MG TAB PO SCH (20:23)
[2019-03-02] MEDS: PYRIDOXINE PO SCH (21:44)
[2019-03-02] MEDS: MELATONIN PO SCH (21:44)
[2019-03-02] MEDS: Zolpidem TAB* 10 MG PO SCH (21:48)
[2019-03-03] MEDS: oxyCODONE TAB* 5 MG TAB PO SCH ×5 (00:33→16:03)
[2019-03-03 05:48] LABS: Hematocrit 29 % (35-47); Hemoglobin 9.7 g/dL (12.0-16.0); Mean Platelet Volume 7.7 fL (7.4-10.4); Platelet Count 289 10^3/uL (150-450)
[2019-03-03] MEDS: Acetaminophen TAB* 325 MG PO SCH ×2 (05:50→14:43)
[2019-03-03] MEDS: Vitamin THERAPEUTIC TAB PO SCH (07:58)
[2019-03-03] MEDS: Atorvastatin* 10 MG TAB PO SCH (07:58)
[2019-03-03] MEDS: Docusate CAP* 100 MG PO SCH (08:00)
[2019-03-03] MEDS: Magnesium Hydroxide LIQ* 30 ML UDC PO SCH (08:00)
[2019-03-03] MEDS: Cyclobenzaprine TAB* 10 MG PO SCH ×2 (08:01→14:44)
--- NOTE | 2019-03-03 09:27 | PN ---
Progress Note - Progress Note Date of Service: 03/03/19 SOAP: Subjective: []Pt seen at bedside, she feels well and desires DC home today. Denies CP, SOB, dizziness, nausea. Objective: []Gen: Appears well, NAD LLE: left knee dressing changed, incision CDI, no erythema. Thigh is soft, DF/PF , DP2+, sensation intact intact to light touch distally Calves supple and nontender without erythema, edema or palpable cords Assessment: [] POD [address] Yepez Plan: []WBAT PT/OT DVT prophy plan: lovenox 40 mg sq then will transition to eliquis 2.5 mg po BID x remainder of 30 days post op Encourage PO fluid intake for low grade tachycardia, given fluid bolus this morning EKG ordered Hosp consulted for tachycardia and fluid started Vital Signs Temp 97.9 F 03/03/19 07:53 Pulse 106 03/03/19 07:53 Resp 20 03/03/19 08:00 BP 139/50 03/03/19 07:53 Pulse Ox 95 03/03/19 07:53 Intake & Output 03/02/19 03/03/19 03/03/19 18:59 06:59 18:59 Intake Total 2559 500 Output Total 1680 300 500 Balance 879 200 -500 Intake: IV Fluids 979 LR 979 IVPB 110 LR 110 Oral 1470 500 Output: Urine 1680 300 500 Other: Date of Last Bowel 03/03/19 Movement Estimated Stool Amount Small Laboratory Last Values Hgb 9.7 g/dL (12.0-16.0) L 03/03/19 04:43 Hct 29 % (35-47) L 03/03/19 04:43 Plt Count 289 10^3/uL (150-450) 03/03/19 04:43 MPV 7.7 fL (7.4-10.4) 03/03/19 04:43 Sodium 139 mmol/L (135-145) 03/02/19 07:48 Potassium 3.8 mmol/L (3.5-5.0) 03/02/19 07:48 Chloride 103 mmol/L (101-111) 03/02/19 07:48 Carbon Dioxide 32 mmol/L (22-32) 03/02/19 07:48 Anion Gap 4 mmol/L (2-11) 03/02/19 07:48 BUN 9 mg/dL (6-24) 03/02/19 07:48 Creatinine 0.83 mg/dL (0.51-0.95) 03/02/19 07:48 Est GFR ( Amer) 85.7 (>60) 03/02/19 07:48 Est GFR (Non-Af Amer) 70.9 (>60) 03/02/19 07:48 BUN/Creatinine Ratio 10.8 (8-20) 03/02/19 07:48 Glucose 131 mg/dL (70-100) H 03/02/19 07:48 Calcium 8.8 mg/dL (8.6-10.3) 03/02/19 07:48
[2019-03-03] MEDS ORDERED: NS 0.9% 500 ML* 500 ML IV ONE (09:28)
[2019-03-03] MEDS ORDERED: Iohexol 350* (CONTRAST) 500 ML MDV IV ONE (10:40)
[2019-03-03] MEDS ORDERED: Enoxaparin(*) 40 MG/0.4 ML SYR SUBCUT SCH (12:00)
[2019-03-03 12:26] LABS: BUN/Creatinine Ratio 12.9 (8-20); Calcium 8.3 mg/dL (8.6-10.3); EGFR African American 83.4 (>60); EGFR Non-African American 68.9 (>60); Potassium 3.7 mmol/L (3.5-5.0)
--- NOTE | 2019-03-03 12:38 | CONS ---
HOSPITAL MEDICINE CONSULTATION REPORT: DATE OF CONSULT: 03/03/19 PROVIDER: Jacquie Nelson NP ATTENDING PHYSICIAN: Dr. Yepez. CONSULTING PHYSICIAN: Dr. Paola Seay (dictated by Jacquie Nelson NP). REASON FOR CONSULT: Tachycardia. HISTORY OF PRESENT ILLNESS: Ms. Levine is a 58-year-old female with a past medical history significant for spinal stenosis, hyperlipidemia, asthma, anxiety , depression, and anemia; who presented to [facility] for an elective left total knee arthroplasty with Dr. Yepez. Please see dictated H and P from [facility] for complete details. In brief, the patient had ongoing pain, failed conservative measures, therefore opted for a left total knee arthroplasty with Dr. Yepez. In the postoperative period, the patient has been experiencing tachycardia with the heart rates in the low 100s. Due to this, hospital medicine was asked to evaluate the patient and make further recommendations. The patient denies any fever, chills, chest pain, or shortness of breath. She denies any palpitations. She denies any nausea, vomiting, diarrhea, or abdominal pain. She denies any gross hematuria or dysuria. She denies any pain with urination. She denies any focal weakness or sensory loss, visual complaints, dysphagia, or arthralgias. She does complain of left knee pain, but reports the pain is adequately controlled at this time. She denies any rashes. She does have a dressing that is dry and intact to her left knee. She denies any acute psychosis. She does report some stress as her is ill at home. Due to the patient's tachycardia, Hospital Medicine was asked to see and evaluate for admission. PAST MEDICAL HISTORY: Significant for: 1. Spinal stenosis. 2. Hyperlipidemia. 3. Asthma. 4. Anxiety. 5. Depression. 6. Anemia. PAST SURGICAL HISTORY: 1. Left and right carpal tunnel releases. 2. Two knee arthroscopies. 3. Right ankle tendon repair. HOME MEDICATIONS: Include: 1. Lipitor 10 mg p.o. daily. 2. Cetirizine 10 mg p.o. daily. 3. Cyclobenzaprine 10 mg p.o. t.i.d. 4. Diclofenac 75 mg p.o. b.i.d., stopped on 02/07/19. 5. Benadryl 25 mg p.o. daily. 6. Ferrous sulfate 325 mg p.o. daily. 7. Iron 25 mg p.o. daily. 8. Multivitamin 1 tab p.o. daily. 9. Oxycodone 10 mg 6 times daily. 10. Risperidone 1 mg at bedtime, half a mg in the morning. 11. Sertraline 200 mg p.o. daily. 12. Ventolin HFA inhaler 2 puffs q.4 hours as needed for shortness of breath. 13. Ambien 10 mg at bedtime. 14. Melatonin 10 mg. ALLERGIES: SULFA, ERYTHROMYCIN, LEVAQUIN, DOXYCYCLINE, and NEURONTIN. FAMILY HISTORY: The patient was adopted. She does report questionable heart disease with her biological father. Unclear of the rest of her family history. SOCIAL HISTORY: The patient denies any smoking, alcohol, or illicit drug use. Surrogate decision maker in the event she is unable to make her own decisions is her . She is a full code. REVIEW OF SYSTEMS: Eleven-point review of systems was completed, all pertinent positives are mentioned in the HPI, otherwise were negative. The patient does report shortness of breath with exertion. PHYSICAL EXAM: Vital Signs: Temperature 97.9, heart rate 106, respirations are 20, O2 saturation is 95% on room air, blood pressure is 139/50. HEENT: Head is atraumatic and normocephalic. Eyes: EOMs are intact. Sclerae anicteric and not pale. Oral mucosa appeared to be moist. Neck is supple. Lungs are diminished bilaterally. There is no wheezing or rhonchi. Cardiac: S1 and S2. Regular rate and rhythm. No rubs or gallops. No murmurs. She is tachycardic. Abdomen is obese, soft, and nontender. Bowel sounds are present x4. Extremities: She is able to move all 4 extremities. She does have a dressing that is dry and intact to her left knee. Pedal pulses are +2 bilaterally. There is no clubbing or cyanosis. Neurologic: She is awake, alert , and oriented x3. Speech is clear. Thought process is intact. There is no gross focal deficits. Skin: She does have a dressing that is dry and intact to her left knee. DIAGNOSTIC STUDIES/LAB DATA: H and H from 03/03/19: Hemoglobin was 9.7 and hematocrit was 29, platelet count was 289. BMP from 03/02/19: Sodium 139, potassium 3.8, chloride 103, carbon dioxide was 32, anion gap was 4, BUN was 9, creatinine 0.83, calcium was 8.8, glucose was 131. She had an electrocardiogram that showed sinus tachycardia at a rate of 105 with occasional PVC. There is no ST or T-wave inversions or depressions. IMPRESSION: Ms. Levine is a 58-year-old female who presented to [facility] for an elective left total knee arthroplasty with Dr. Yepez. In the postoperative period, the patient has had tachycardia, Hospital Medicine was asked to consult. PLAN/RECOMMENDATIONS: Our recommendations are as follows: 1. Tachycardia. It is unclear of the source of her tachycardia at this point. The patient's pain is adequately controlled. She does report increased stress as she does have an ill at home. The patient does report that she has mild shortness of breath and that is worse with exertion. At this time, I would recommend a CTA of the chest. This has been ordered and is currently pending. I will repeat a BMP and magnesium level as the patient did have an EKG that showed sinus tachycardia with some PVCs to check her electrolytes. Further recommendations will be made based on testing. 2. Anxiety/depression. She should continue on home medications as previously prescribed. 3. Status post left total knee arthroplasty. Management per Orthopedics. PT/ OT per Orthopedics. Bowel regimen per Orthopedics. Pain management per orthopedics. 4. Asthma. The patient should continue on her Ventolin inhaler. 5. Hyperlipidemia. She should continue on her Lipitor as previously prescribed. 6. FEN. She can have a regular diet. 7. Code status. She is a full code. 8. DVT prophylaxis. As per Orthopedics. TIME SPENT: Time spent on this consultation was 45 minutes, greater than half that time was spent at the bedside reviewing the events leading thus far to her hospitalization, performing the physical exam, and reviewing my plan of care. Next I have discussed with my attending Dr. Paola Seay, she is in agreement with my plan. JACQUIE NELSON, RECRUITER ACCOUNT MANAGER [id number]/[facility] #: [id number] [facility]
[2019-03-03] MEDS ORDERED: Bisacodyl SUPP* 10 MG SUPP PR PRN (15:37)
[2019-03-03 16:10] VITALS: BP 129/63
--- NOTE | 2019-03-03 16:43 | DS ---
Orthopedic Discharge Summary - Discharge Summary Date of Admission:03/01/19 Date of Discharge: 03/03/2019 Date of Surgery: 03/01/2019 Attending Orthopedic Provider: Dr. Yepez Pre-operative Diagnosis: Left knee osteoarthritis Operative Procedure: Left total knee arthroplasty Disposition of Patient: Home Condition of Patient: Good History: DAVIN WATTERS is a 58 year old F with years of increasingly severe left knee pain. Patient has failed conservative management and has elected to undergo a left total knee replacement Hospital Course: DAVIN was admitted to [facility] on 03/01/19. Patient underwent a left total knee arthroplasty without complication followed by a brief recovery in PACU and transfer to the Short Stay Surgical Unit in stable condition. Our hospitalist service, physical therapy and occupational therapy also participated in this patients care. Post-op day 1: patient was alert and in no acute distress. Dressing was clean, dry and intact. Operative extremity dorsiflexion and plantarflexion intact, sensation intact to light touch distally, DP2+. Post-op day two: dressing was changed, incision was clean , dry and intact. Pt was found to be tachycardic. Hospitalists were consulted and an EKG was ordered which was found to be WNL. A chest CT and a VQ scan was ordered which was found to have a low probability of a PE. The patient was deemed to be medically and orthopedically stable for discharge. Physical therapy goals were met. Home Medications Medication Instructions Recorded Confirmed Type Sertraline* [Zoloft*] 100 mg PO QPM 12/08/14 03/01/19 History Cholecalciferol (Vitamin D3) 5,000 units PO QPM 01/20/17 03/01/19 History [Vitamin D3] Albuterol HFA INHALER* [Ventolin 2 puff INH Q4H PRN 02/16/19 03/01/19 History HFA Inhaler*] Atorvastatin* [Lipitor*] 10 mg PO QAM 02/16/19 03/01/19 History Azo Yeast Plus 1 tab PO QAM 02/16/19 03/01/19 History Cetirizine HCl [All Day Allergy] 10 mg PO QPM 02/16/19 03/01/19 History Cyclobenzaprine HCl 10 mg PO TID 02/16/19 03/01/19 History Diclofenac Sodium 75 mg PO BID 02/16/19 03/01/19 History Melatonin/Pyridoxine HCl (B6) 2 tab PO QPM 02/16/19 03/01/19 History [Melatonin] Multivitamin [Multivitamins] 1 cap PO QAM 02/16/19 03/01/19 History Oxycodone TAB(NF) [Oxycodone HCl 10 mg PO Q4H 02/16/19 03/01/19 History 10 MG] Risperidone [Risperdal] 0.5 mg PO QAM 02/16/19 03/01/19 History Zolpidem Tartrate 10 mg PO QPM 02/16/19 03/01/19 History diphenhydrAMINE HCl 25 mg PO QPM 02/16/19 03/01/19 History [Diphenhydramine HCl] risperiDONE [Risperdal] 1 mg PO QPM 02/16/19 03/01/19 History Discharge Instructions following Orthopedic Surgery: Discharge to home Activity: * Weight Bearing as tolerated * Continue physical therapy and occupational therapy exercises as shown Wound care: * OK to shower on post-op day 3, no bathing, swimming, or submerging wound. * Use gentle soap, pat dry. Cover with gauze, MAJO wrap or tape. * Visiting home nurse to do wound checks. Call Orthopedic office for: * Increased drainage * Redness * Increased pain * Fever Go to ER with shortness of breath or chest pain. Diet: * Regular diet * Increase fluids and fiber to prevent constipation. * Continue to use stool softeners, call office if no bowel motion within 48 hours. Medications See Home Medication List in your packet for medications that you should take after discharge. DVT Prophylaxis: Eliquis Dosin.5 mg, 1 tab every 12 hours x 30 days Pain Control: Percocet Dosin/325 mg 1-2 tabs by mouth every 4-6 hours as needed for pain. Maximum of 10 tabs per day. Celebrex Dosin mg twice a day Please note that Percocet contains Tylenol (acetaminophen). Maximum daily dose of Tylenol is 4000 mg from all sources. Antibiotics are required prior to any dental work. FOLLOW UP: Follow up with [Marleni] Within 10-14 days, call for appointment Please call our office with any questions or concerns ([phone])
== END 2019-03-03 17:56 | disposition home health service (06) | DRG 302 ==
LOC: AA 08:34 → SSU 17:52
PROVIDERS: ADMIT Orthopaedic Surgery; ATTEND Orthopaedic Surgery
PROC: 0SRD0J9 Replacement of Left Knee Joint with Synthetic Substitute, Cemented, Open Approach (ICD-10-PCS; principal; 2019-03-01 10:30)
DX: M17.12 Unilateral primary osteoarthritis, left knee (principal); Z68.42 Body mass index [BMI] 45.0-49.9, adult; E78.00 Pure hypercholesterolemia, unspecified; J45.909 Unspecified asthma, uncomplicated; F41.9 Anxiety disorder, unspecified; F32.9 Major depressive disorder, single episode, unspecified; M48.00 Spinal stenosis, site unspecified; E78.5 Hyperlipidemia, unspecified; E66.9 Obesity, unspecified; F43.10 Post-traumatic stress disorder, unspecified; R91.8 Other nonspecific abnormal finding of lung field; N28.1 Cyst of kidney, acquired; E55.9 Vitamin D deficiency, unspecified; M21.162 Varus deformity, not elsewhere classified, left knee; D64.9 Anemia, unspecified; R00.0 Tachycardia, unspecified; Z83.3 Family history of diabetes mellitus; Z80.1 Family history of malignant neoplasm of trachea, bronchus and lung; Z88.1 Allergy status to other antibiotic agents; Z88.2 Allergy status to sulfonamides; Z88.8 Allergy status to other drugs, medicaments and biological substances
CPT/HCPCS: 36415; 71275; 78582; 80048; 83735; 85014; 85018; 85049; 87641; 88305; 88311; 93005; A9270-GY; A9540; A9558; C1776; J0690; J1100; J1170; J1650; J1885; J2250; J2405; J2704; J2795; J3010; Q9967

== ENCOUNTER 2020-01-25 21:33 | Inpatient (IN) ==
[2020-01-25 23:19] LABS: Hematocrit 34 % (35-47); Hemoglobin 11.6 g/dL (12.0-16.0); Mean Corpuscular HGB Conc 34 g/dL (31-36); Mean Corpuscular Hemoglobin 29 pg (27-31); Mean Corpuscular Volume 84 fL (80-97); Mean Platelet Volume 6.8 fL (7.4-10.4); Platelet Count 423 10^3/uL (150-450); Red Blood Count 3.99 10^6 /uL (3.70-4.87); Red Cell Distribution Width 15 % (10-15)
[2020-01-25] MEDS ORDERED: NS 0.9% 1000 ml BAG 2,000 ML IV ONE (23:30)
[2020-01-25] MEDS ORDERED: NS 0.9% IV ONE (23:30)
[2020-01-25] MEDS ORDERED: cefTRIAXone 1 gm/50 mL NS BAG 1 GM/50 ML BAG IV ONE (23:33)
[2020-01-25 23:39] LABS: ALT 13 U/L (7-52); AST 22 U/L (13-39); Albumin 2.9 g/dL (3.2-5.2); Albumin/Globulin Ratio 0.6 (1-3); Alkaline Phosphatase 293 U/L (34-104); Anion Gap 18 mmol/L (2-11); BUN/Creatinine Ratio 15.2 (8-20); Blood Urea Nitrogen 58 mg/dL (6-24); CO2 Carbon Dioxide 23 mmol/L (22-32); Calcium 9.4 mg/dL (8.6-10.3); Chloride 91 mmol/L (101-111); EGFR African American 14.7 (>60); EGFR Non-African American 12.1 (>60); Glucose 83 mg/dL (70-100); Magnesium 2.3 mg/dL (1.9-2.7); Potassium 3.3 mmol/L (3.5-5.0); Sodium 132 mmol/L (135-145); Total Protein 7.9 g/dL (6.4-8.9)
[2020-01-25 23:52] LABS: Troponin I 0.16 ng/mL (<0.03)
[2020-01-26] MEDS ORDERED: NS 0.9% 1000 ml BAG 1,000 ML IV ONE (00:13)
[2020-01-26] MEDS ORDERED: NS 0.9% 1000 ml BAG 1,500 ML IV ONE (00:15)
[2020-01-26 01:24] LABS: ABS Basophils 0.1 10^3/ul (0-0.2); ABS Eosinophils 0.3 10^3/ul (0-0.6); ABS Lymphocytes 1.1 10^3/ul (1.0-4.8); ABS Monocytes 1.1 10^3/ul (0-0.8); ABS Neutrophils 23.5 10^3/ul (1.5-7.7); Eosinophil % 1.3 %; Lymphocyte % 4.1 %; Nucleated Red Blood Cells % 0.1
[2020-01-26 01:42] LABS: C Reactive Protein 483.49 mg/L (<8.01)
[2020-01-26] MEDS ORDERED: Albuterol/Ipratropium NEB.SOL (2.5/0.5 MG) 3 ML NEB.SOLN INH SCH (04:00)
[2020-01-26] MEDS ORDERED: Albuterol/Ipratropium NEB.SOL (2.5/0.5 MG) 3 ML NEB.SOLN INH PRN (04:14)
[2020-01-26 04:21] LABS: Urine Appearance Turbid; Urine Bilirubin 1+ (Negative); Urine Blood 1+ (Negative); Urine Color Amber; Urine Glucose Negative (Negative); Urine Ketones Negative (Negative); Urine Nitrite Negative (Negative); Urine Protein 2+(100 mg/dL) (Negative); Urine Specific Gravity 1.017 (1.010-1.030); Urine Urobilinogen Positive (Negative)
[2020-01-26 04:41] LABS: Urine Bacteria 1+ (Absent); Urine Red Blood Cell 2+(6-10/hpf) (Absent); Urine Squamous Epithelial Cell Present (Absent); Urine White Blood Cell 3+(>20/hpf) (Absent)
[2020-01-26 05:03] LABS: Hematocrit 31 % (35-47); Hemoglobin 10.3 g/dL (12.0-16.0); Mean Corpuscular HGB Conc 33 g/dL (31-36); Mean Corpuscular Hemoglobin 28 pg (27-31); Mean Corpuscular Volume 85 fL (80-97); Mean Platelet Volume 6.8 fL (7.4-10.4); Platelet Count 385 10^3/uL (150-450); Red Blood Count 3.67 10^6 /uL (3.70-4.87); Red Cell Distribution Width 14 % (10-15); White Blood Count 22.3 10^3/uL (3.5-10.8)
[2020-01-26 05:08] LABS: Anion Gap 5 mmol/L (2-11); CO2 Carbon Dioxide 22 mmol/L (22-32); Calcium 7.4 mg/dL (8.6-10.3); Chloride 107 mmol/L (101-111); Magnesium 1.9 mg/dL (1.9-2.7); Potassium 4.1 mmol/L (3.5-5.0); Sodium 134 mmol/L (135-145)
[2020-01-26 05:14] LABS: ALT 19 U/L (7-52); AST 26 U/L (13-39); Alkaline Phosphatase 586 U/L (34-104); BUN/Creatinine Ratio 14.2 (8-20); Blood Urea Nitrogen 27 mg/dL (6-24); EGFR African American 32.9 (>60); EGFR Non-African American 27.2 (>60); Glucose 181 mg/dL (70-100); Total Protein 4.7 g/dL (6.4-8.9)
[2020-01-26 05:17] LABS: Albumin < 1.5 g/dL (3.2-5.2); Albumin/Globulin Ratio 0.5 (1-3); Globulin 3.2 g/dL (2-4)
[2020-01-26 05:18] LABS: Troponin I 0.14 ng/mL (<0.03)
[2020-01-26] MEDS ORDERED: Magnesium Sulfate IV 1GM/100ML 1 GM/100 ML BAG IV ONE (07:10)
[2020-01-26] MEDS: Heparin 5000 UNITS/ML 1 mL VIAL SUBCUT SCH ×2 (07:42→20:45)
[2020-01-26] MEDS ORDERED: Perflutren Lipid Microsphere 3 ML VIAL ONE (08:20)
[2020-01-26] MEDS ORDERED: cefTRIAXone 1 gm/50 mL NS BAG 1 GM/50 ML BAG IVPB SCH ×2 (09:00→22:00)
[2020-01-26] MEDS ORDERED: DOXYcycline 100 MG in NS 0.9% 250 ml 250 ML IVPB SCH (09:00)
[2020-01-26 09:42] LABS: Troponin I 0.08 ng/mL (<0.03)
[2020-01-26] MEDS: Nystatin TOP POWDER 15 GM BTL TOPICAL SCH ×3 (09:49→20:44)
[2020-01-26 10:08] LABS: ABS Basophils 0.1 10^3/ul (0-0.2); ABS Eosinophils 0.4 10^3/ul (0-0.6); ABS Lymphocytes 1.2 10^3/ul (1.0-4.8); ABS Monocytes 1.1 10^3/ul (0-0.8); ABS Neutrophils 19.4 10^3/ul (1.5-7.7); Lymphocyte % 5.6 %
[2020-01-26] MEDS ORDERED: fentaNYL 100 mcg/2 ml 50 MCG/ML VIAL ONE (14:12)
[2020-01-26] MEDS ORDERED: Naloxone 0.4 mg VIAL 0.4 mg/ml 1 ml VIAL ONE (14:12)
[2020-01-26] MEDS ORDERED: Lorazepam PYXIS KEY PRN (14:31)
[2020-01-26] MEDS ORDERED: LORazepam 2 mg VIAL 1 ml IV PUSH ONE (14:31)
[2020-01-26] MEDS ORDERED: Lorazepam PYXIS KEY ONE (14:32)
[2020-01-26] MEDS ORDERED: LORazepam 2 mg VIAL 1 ml ONE (14:33)
[2020-01-26 17:37] LABS: Body Fluid Source Pleural Fluid
[2020-01-26] MEDS ORDERED: Vancomycin 1,250 MG in NS 0.9% 250 ml 250 ML IVPB ONE (18:00)
[2020-01-26] MEDS ORDERED: Vancomycin per Pharmacy 1 EA NOTE FOLLOW UP SCH (18:00)
[2020-01-26] MEDS: Meropenem 1 GM PREMIX(*) 1 GM/50 ML BAG IV SCH (18:07)
[2020-01-26 18:56] LABS: Body Fluid Band 1 %
[2020-01-27 04:57] LABS: Hematocrit 31 % (35-47); Hemoglobin 10.3 g/dL (12.0-16.0); Mean Corpuscular HGB Conc 34 g/dL (31-36); Mean Corpuscular Hemoglobin 28 pg (27-31); Mean Corpuscular Volume 85 fL (80-97); Mean Platelet Volume 6.5 fL (7.4-10.4); Platelet Count 345 10^3/uL (150-450); Red Blood Count 3.62 10^6 /uL (3.70-4.87); Red Cell Distribution Width 15 % (10-15); White Blood Count 15.7 10^3/uL (3.5-10.8)
[2020-01-27 05:05] LABS: Albumin 2.7 g/dL (3.2-5.2); Calcium 9.3 mg/dL (8.6-10.3); Magnesium 2.7 mg/dL (1.9-2.7); Potassium 3.2 mmol/L (3.5-5.0); Total Bilirubin 1.5 mg/dL (0.2-1.0)
[2020-01-27 05:11] LABS: Albumin/Globulin Ratio 0.6 (1-3); BUN/Creatinine Ratio 19.6 (8-20); EGFR Non-African American 17.4 (>60); Globulin 4.5 g/dL (2-4); Total Protein 7.2 g/dL (6.4-8.9)
[2020-01-27] MEDS: Meropenem 1 GM PREMIX(*) 1 GM/50 ML BAG IV SCH (05:41)
[2020-01-27 06:24] LABS: Vancomycin Random 16.2 mcg/mL
[2020-01-27 08:00] LABS: ABS Basophils 0.1 10^3/ul (0-0.2); ABS Eosinophils 0.1 10^3/ul (0-0.6); ABS Lymphocytes 1.3 10^3/ul (1.0-4.8); ABS Monocytes 0.8 10^3/ul (0-0.8); ABS Neutrophils 13.4 10^3/ul (1.5-7.7); Eosinophil % 0.9 %
[2020-01-27] MEDS: Heparin 5000 UNITS/ML 1 mL VIAL SUBCUT SCH (08:30)
[2020-01-27] MEDS: Nystatin TOP POWDER 15 GM BTL TOPICAL SCH ×2 (08:31→13:14)
[2020-01-27] MEDS ORDERED: Lactated Ringers 1000 ml BAG 1,000 ML IV SCH (09:00)
[2020-01-27] MEDS ORDERED: Vancomycin 750 MG in NS 0.9% 250 ml 250 ML IVPB ONE (10:00)
[2020-01-27] MEDS ORDERED: fentaNYL 100 mcg/2 ml 50 MCG/ML VIAL IV SLOW PU ONE (15:05)
[2020-01-27 16:09] VITALS: BP 139/96
[2020-01-27] MEDS ORDERED: Meropenem 500MG PREMIX(*) 500 MG/50 ML BAG IV SCH (18:00)
[2020-01-28] MEDS ORDERED: Vancomycin Random Level NOTE FOLLOW UP ONE (06:00)
[2020-01-29 09:44] LABS: Fluid Type, Glucose PLEURAL; Glucose, BF 10 mg/dL
[2020-01-29 09:48] LABS: Fluid Type, Protein, Total PLEURAL
[2020-01-30 12:18] LABS: Lactate Dehydrogenase, BF > 9000 U/L
== END 2020-01-27 17:10 | disposition short-term general hospital (02) | DRG 720 ==
LOC: ED 21:33 → ICU 01-26 01:57
PROVIDERS: ADMIT Internal Medicine; ATTEND Internal Medicine